=== PATIENT | female | born 1990 | race Asian ===

== ENCOUNTER 2023-07-16 05:30 | Inpatient (IN) | payer BC ==
[2023-07-16] MEDS ORDERED: Ondansetron PF 4 MG/2 ML Vial IVP PRN ×2 (05:34→12:39)
[2023-07-16] MEDS ORDERED: hydrALAZINE 20 MG/ML VIAL SLOW IVP PRN ×2 (05:34→09:39)
[2023-07-16] MEDS ORDERED: Ibuprofen 800 MG TAB PO PRN (05:34)
[2023-07-16] MEDS ORDERED: Methylergonovine 0.2 MG/ML VIAL IM PRN (05:34)
[2023-07-16] MEDS ORDERED: Acetaminophen 500 MG TAB PO PRN (05:34)
[2023-07-16] MEDS ORDERED: Carboprost 250 MCG/ML AMP IM PRN (05:34)
[2023-07-16] MEDS ORDERED: Lidocaine 1% (PF) 30 ML VIAL SC PRN (05:34)
[2023-07-16] MEDS ORDERED: Diphenoxylate HCl/Atropine Tablet PO PRN ×2 (05:34)
[2023-07-16] MEDS ORDERED: Lactated Ringer's 1,000 ML IV SCH (05:34)
[2023-07-16] MEDS ORDERED: HYDROcodone/Acetaminophen 5/325 mg Tablet PO PRN ×2 (05:34)
[2023-07-16] MEDS ORDERED: Oxytocin 30 units/NS 500 ML 500 ML IV SCH ×2 (05:34)
[2023-07-16] MEDS ORDERED: Promethazine HCl 25 MG/ML VIAL IM PRN ×2 (05:34→12:39)
[2023-07-16] MEDS ORDERED: Tranexamic Acid 1,000 MG/10 ML VIAL IVP PRN (05:34)
[2023-07-16] MEDS ORDERED: Misoprostol 200 MCG TAB PR PRN (05:34)
[2023-07-16] MEDS ORDERED: fentaNYL 50 mcg/mL 1 mL Vial SLOW IVP PRN (05:34)
[2023-07-16 05:45] VITALS: BMI 28.3
[2023-07-16 06:57] LABS: Hematocrit 35.8 % (34.9-44.5); Hemoglobin 12.9 g/dL (12.0-15.5); Mean Corpuscular Hemoglobin 30.7 pg (27.0-33.0); Mean Corpuscular Volume 85.2 fl (81.6-98.3); Mean Platelet Volume 9.9 fl (7.4-10.4); Platelet Count 270 10x3/uL (150-450); RBC Distribution Width 13.9 % (11.5-14.5); White Blood Cell (WBC) Count 10.5 10x3/uL (3.5-10.5)
[2023-07-16 07:27] LABS: HBSAg Index 0.13 S/CO (0-0.99); Hep B Surf Ag - L&D Non-Reactive S/CO (NonReactive)
[2023-07-16 07:28] LABS: Syphilis Antibody Nonreactive (Nonreactive); Syphilis Antibody Index 0.04 S/CO (<1.00 Non-Reactive)
[2023-07-16] MEDS ORDERED: fentaNYL/Ropivacaine Epidural 100 ML ONE (07:49)
[2023-07-16] MEDS ORDERED: Preparation H Ointment 28 GM TUBE PR PRN (09:39)
[2023-07-16] MEDS ORDERED: diphenhydrAMINE 25 MG CAP PO PRN (09:39)
[2023-07-16] MEDS ORDERED: Lanolin Ointment 7 GM TUBE TOP PRN (09:39)
[2023-07-16] MEDS ORDERED: traMADol HCl 50 MG TAB PO PRN (09:39)
[2023-07-16] MEDS ORDERED: Milk Of Magnesia 30 ML UDCUP PO PRN (09:39)
[2023-07-16] MEDS ORDERED: Boostrix 0.5 ML (Tdap) VIAL (>/=7 yrs of age) IM ONE (09:39)
[2023-07-16] MEDS ORDERED: Bisacodyl 10 MG SUPP PR PRN (09:39)
[2023-07-16] MEDS ORDERED: Moisturizing Cream (Eucerin) 113 GM JAR TOP PRN (12:39)
[2023-07-16] MEDS ORDERED: Naloxone HCl 0.4 mg/ml Vial IVP PRN ×2 (12:39)
[2023-07-16] MEDS ORDERED: Acetaminophen 325 MG TAB PO PRN (12:39)
[2023-07-16] MEDS ORDERED: ePHEDrine Sulfate 50 MG/10 ML VIAL SLOW IVP PRN (12:39)
[2023-07-16] MEDS ORDERED: diphenhydrAMINE 50 MG/ML VIAL IVP PRN (12:39)
[2023-07-16] MEDS ORDERED: Lactated Ringer's 500 ML IV PRN (12:39)
[2023-07-16] MEDS ORDERED: fentaNYL 2 mcg/Ropivacaine 0.2% Epidural 100 ML CADD EPIDURAL SCH (12:45)
[2023-07-16] MEDS ORDERED: Communication Order-Pharmacy FS SCH (12:45)
[2023-07-16] MEDS ORDERED: Bupivacaine 0.25% HCL 30 ML VIAL ONE (13:00)
[2023-07-16] MEDS: Ibuprofen 800 MG TAB PO SCH ×2 (15:05→21:22)
[2023-07-16] MEDS: Ferrous Sulfate 325 MG TAB PO SCH (15:06)
[2023-07-16] MEDS: Docusate 100 MG CAP PO SCH (21:22)
[2023-07-17] MEDS: Ibuprofen 800 MG TAB PO SCH (05:07)
[2023-07-17] MEDS: Docusate 100 MG CAP PO SCH (08:57)
[2023-07-17] MEDS ORDERED: Prenatal Vitamin 1 TAB PO SCH (09:00)
[2023-07-17 11:21] VITALS: BP 111/67; TEMP 98.5
[2023-07-17] MEDS: Ferrous Sulfate 325 MG TAB PO SCH (11:22)
== END 2023-07-17 14:15 | disposition home or self-care (01) | DRG 807 ==
LOC: CSHLD 05:30 → CSHPED 11:30
PROVIDERS: ADMIT Obstetrics & Gynecology; ATTEND Obstetrics & Gynecology
PROC: 10E0XZZ Delivery of Products of Conception, External Approach (ICD-10-PCS; principal; 2023-07-16)
PROC: 0HQ9XZZ Repair Perineum Skin, External Approach (ICD-10-PCS; 2023-07-16)
DX: O36.5930 Maternal care for other known or suspected poor fetal growth, third trimester, not applicable or unspecified (principal); Z37.0 Single live birth; O70.0 First degree perineal laceration during delivery; Z3A.38 38 weeks gestation of pregnancy; E03.9 Hypothyroidism, unspecified; O99.284 Endocrine, nutritional and metabolic diseases complicating childbirth; Z79.890 Hormone replacement therapy; O24.420 Gestational diabetes mellitus in childbirth, diet controlled
CPT/HCPCS: 36416; 51702; 85027; 86780; 86850; 86900; 86901; 87340; J2590; J7120; S0020